=== PATIENT | male | born 1975 | race Caucasian/White ===

== ENCOUNTER 2021-07-24 20:45 | Emergency (ER) | payer OTHER ==
[2021-07-24 21:26] LABS: BASOPHIL 0.4 % (0-2); EOSINOPHIL 0.1 % (0-5); HCT 48.5 % (42.0-52.0); HGB 16.1 g/dl (13.2-18.0); LYMPHOCYTE 9.6 % (15-48); MCH 32.2 pg (25.0-31.0); MCHC 33.2 g/dL (32.0-36.0); MONOCYTE 3.4 % (0-12); MPV 10.3 fL (6.0-9.5); NEUTROPHIL 86.1 % (41-80); NRBC 0; PLT 277 K/uL (150-400); RDW 15.9 % (11.5-14.0); WBC 16.1 K/uL (4.0-10.5)
[2021-07-24 21:32] LABS: BILIRUBIN NEGATIVE (NEGATIVE); BLOOD TRACE-INTACT Ery/uL (NEGATIVE); CLARITY CLEAR (CLEAR); COLOR YELLOW (YELLOW); GLUCOSE (U) NORMAL (NORMAL); LEUKOCYTES NEGATIVE Leu/uL (NEGATIVE); NITRITE NEGATIVE (NEGATIVE); PROTEIN NEGATIVE (NEGATIVE); SPECIFIC GRAVITY >=1.030 (1.001-1.030); UROBILINOGEN 0.2 mg/dL (0.2-1.0)
[2021-07-24 21:38] LABS: BILIRUBIN - TOTAL 0.3 mg/dL (0.2-1.0); BUN/CREAT RATIO (CALC) 16.3 RATIO; CREATININE 0.98 mg/dL (0.67-1.17); GLOBULIN (CALCULATION) 3.5 g/dL; TOTAL PROTEIN 7.5 g/dL (6.4-8.2)
[2021-07-24 21:39] LABS: AMPHETAMINES POSITIVE (NEGATIVE); BARBITURATES NEGATIVE (NEGATIVE); ECSTASY (MDMA) NEGATIVE (NEGATIVE); MARIJUANA (THC) POSITIVE (NEGATIVE); METHADONE NEGATIVE (NEGATIVE); OPIATES NEGATIVE (NEGATIVE); OXYCODONE NEGATIVE (NEGATIVE)
[2021-07-24 21:49] LABS: URINARY RBC RARE; URINARY WBC RARE
[2021-07-24] MEDS ORDERED: NORCO 5-325 TA1 EACH PO (22:25)
[2021-07-24] MEDS ORDERED: COLACE100 MG PO (22:28)
[2021-07-24] MEDS ORDERED: ONDANSETRON ODT4 MG PO (22:28)
== END 2021-07-24 23:10 | disposition home or self-care (01) ==
LOC: FER 20:45
PROVIDERS: Emergency Medicine
DX: S82.851A Displaced trimalleolar fracture of right lower leg, initial encounter for closed fracture (principal); S82.831A Other fracture of upper and lower end of right fibula, initial encounter for closed fracture; I10 Essential (primary) hypertension; Z20.822 Contact with and (suspected) exposure to COVID-19; X50.1XXA Overexertion from prolonged static or awkward postures, initial encounter; Y92.410 Unspecified street and highway as the place of occurrence of the external cause
CPT/HCPCS: 36415; 73590; 73600; 73610; 80053; 80305; 81001; 83690; 85025; 96374; 96375; J2704; U0002